=== PATIENT | male | born 1985 | race Caucasian/White ===

== ENCOUNTER 2025-05-12 12:09 | Emergency (ER) | payer BC ==
[~2025-05-12] VITALS: Ht 170.1 cm; Wt 99.8 kg
[~2025-05-12 12:09] MED LIST: HYDROCODONE BIT1 T11 PO; MOTRIN800 MG PO; NAPROSYN500 MG PO
[2025-05-12] MEDS ORDERED: PREDNISONE50 MG PO (14:04)
[2025-05-12] MEDS ORDERED: Acetaminophen/Hydrocodone HP 10/325 PO ONE (14:05)
[2025-05-12] MEDS ORDERED: Water, Sterile 10 ML VIAL ONE (14:27)
== END 2025-05-12 14:40 | disposition home or self-care (01) ==
LOC: ED 12:09
DX: G89.29 Other chronic pain (principal); M54.6 Pain in thoracic spine; Z79.899 Other long term (current) drug therapy; Z90.49 Acquired absence of other specified parts of digestive tract